=== PATIENT | male | born 1945 | race Caucasian/White ===

== ENCOUNTER 2017-12-02 06:23 | Inpatient (IN) | payer MEDICARE ==
[2017-12-02] MEDS ORDERED: GLUCAGON 1 MG/ML VIAL OTHER PRN (10:30)
[2017-12-02] MEDS ORDERED: NICOTINE 21 MG/24 HR PATCH T-DERMAL PRN (10:30)
[2017-12-02] MEDS ORDERED: ALUMINUM/MAGNESIUM/SIMETH 30 ML CUP PO PRN (10:30)
[2017-12-02] MEDS ORDERED: MAGNESIUM HYDROXIDE SUSP 30 ML CUP PO PRN (10:30)
[2017-12-02] MEDS ORDERED: DEXTROSE 50% IN WATER 50 ML VIAL(D50) IV PUSH PRN (10:30)
[2017-12-02] MEDS ORDERED: ACETAMINOPHEN 325 MG TAB PO PRN (10:30)
[2017-12-02] MEDS ORDERED: BUPR100T4 PO (11:10)
[2017-12-02] MEDS ORDERED: ALBI1INJ2 SQ (11:10)
[2017-12-02] MEDS ORDERED: DIVA500T PO (11:10)
[2017-12-02] MEDS ORDERED: METO100T PO (11:10)
[2017-12-02] MEDS ORDERED: PANT40TA3 PO (11:10)
[2017-12-02] MEDS ORDERED: DIVA500T3 PO (11:10)
[2017-12-02] MEDS ORDERED: ALFU10TA2 PO (11:10)
[2017-12-02] MEDS ORDERED: AMLO2.5T PO (11:10)
[2017-12-02] MEDS ORDERED: FINA5TAB2 PO (11:10)
[2017-12-02] MEDS ORDERED: IPRASOL INH (11:10)
[2017-12-02] MEDS ORDERED: GLIP10TA6 PO (11:10)
[2017-12-02] MEDS ORDERED: SERT25TA83 PO (11:10)
[2017-12-02] MEDS ORDERED: GLUC1000 PO (11:10)
[2017-12-02] MEDS ORDERED: LANTUS2P SQ (11:10)
[2017-12-02] MEDS ORDERED: FERR325T18 PO (11:10)
[2017-12-02] MEDS ORDERED: NOVOINJ3 SQ ×3 (11:10)
[2017-12-02] MEDS ORDERED: ATOR40TA16 PO (11:10)
[2017-12-02] MEDS ORDERED: GABA400C5 PO ×2 (11:10→11:53)
[2017-12-02] MEDS ORDERED: HYDR25TA5 PO (11:10)
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
[2017-12-02] MEDS: INSULIN ASPART SUPPLEMENTAL SCALE SQ SCH ×3 (12:00→20:31)
--- NOTE | 2017-12-02 13:28 | HHI.PYPN ---
Subjective Remarks Patient was seen today for second opinion. The patient reports that the reason he is here is because he tried to commit suicide. Patient states that he has been very depressed since his left him last September 2017. He reports that he has history of suicidal attempt long time ago when he was in [place] [employer]. The patient reports feeling lonely, sad, with increased sense of hopelessness, helplessness, and persistent suicidal ideation with a plan of overdosing or jumping in front of a car. The patient is fully oriented 3, no attention deficit, no fluctuation of consciousness present. He denies the use of alcohol and illegal drugs. Mental Status Examination Appearance: Appropriate Consciousness: Alert Orientation: x4 Motor Activity: Normal gait Speech: Unremarkable Language: Adequate Fund of Knowledge: Adequate Attention and Concentration: Adequate Memory: Unremarkable Mood: Sad Affect: Sad Thought Process & Associations: Intact Thought Content: Appropriate Hallucination Type: None Delusion Type: None Suicidal Ideation: Yes Suicidal Plan: Yes Suicidal Intention: No Homicidal Ideation: No Homicidal Plan: No Homicidal Intention: No Insight: Poor Judgment: Poor Assessment & Plan Problem List: (1) Adjustment disorder with depressed mood ICD Codes: F43.21 - Adjustment disorder with depressed mood Assessment & Plan: I have seen and examined this patient for second opinion, reviewed documentation, discussed the patient with nursing charge, I agree and concur with Dr. Oswald assessment and plan. Assessment & Plan Estimated LOS: days Justification for Cont. Inpt. Patient is currently suicidal Enmanuel Zamarripa MD Dec 02, 2017 13:28
[2017-12-02] MEDS: metFORMIN HCL 500 MG TAB PO SCH ×2 (13:49→17:34)
[2017-12-02] MEDS: GABAPENTIN 400 MG CAP PO SCH ×2 (13:49→20:31)
[2017-12-02] MEDS: buPROPion HCL 100 MG TAB PO SCH ×2 (13:49→20:31)
[2017-12-02] MEDS: amLODIPine BESYLATE 5 MG TAB PO SCH (13:49)
[2017-12-02] MEDS: FINASTERIDE 5 MG TAB PO SCH (13:49)
[2017-12-02] MEDS: TAMSULOSIN HCL 0.4 MG CAP PO SCH (13:49)
[2017-12-02] MEDS: glipiZIDE 10 MG TAB PO SCH ×2 (13:49→16:26)
[2017-12-02] MEDS: FERROUS SULFATE 325 MG (65 MG ELEMENTAL IRON) TAB PO SCH ×3 (13:49→20:31)
[2017-12-02] MEDS: METOPROLOL TARTRATE 100 MG TAB PO SCH ×2 (13:50→20:31)
[2017-12-02] MEDS: PANTOPRAZOLE SOD 40 MG DELAYED RELEASE TAB PO SCH (13:50)
[2017-12-02] MEDS: HYDROCHLOROTHIAZIDE 25 MG TAB PO SCH (13:50)
[2017-12-02] MEDS: INSULIN DETEMIR 100 UNITS/ML VIAL SQ SCH (13:51)
[2017-12-02] MEDS ORDERED: PILL SPLITTER OTHER PRN (15:00)
--- NOTE | 2017-12-02 15:15 | PD.CONS ---
[facility] By Dr. Pinedo Reason for Consult Medical management Primary Care Physician Unknown Diagnoses: (1) Coronary artery disease (2) Diabetes mellitus (3) Hypertension (4) Adjustment disorder with depressed mood History of Present Illness The patient is a 72-year-old male admitted to the medical/psychiatric unit under Shah act for suicide attempt. He states that he feels less depressed today. He has no other complaints at this time. He reports chronic bowel issues, alternating constipation and diarrhea secondary to medications. He also has chronic cough which he states is secondary to radiation pneumonitis. Review of Systems Constitutional: DENIES: Fever, Chills, Night Sweats Eyes: DENIES: Blurred vision, Vision loss Ears, nose, mouth, throat: DENIES: Hearing loss Respiratory: COMPLAINS OF: Cough, DENIES: Wheezing, Sputum production, Shortness of breath Cardiovascular: DENIES: Chest pain, Palpitations, Dyspnea on Exertion, Lower Extremity Edema Gastrointestinal: COMPLAINS OF: Constipation, Diarrhea, DENIES: Abdominal pain , Nausea, Vomiting Genitourinary: DENIES: Urinary frequency, Urinary incontinence, Urgency, Hematuria, Dysuria, Nocturia Musculoskeletal: DENIES: Joint pain, Muscle aches Integumentary: DENIES: Pruritus, Rash Hematologic/lymphatic: DENIES: Bruising Neurologic: DENIES: Headache Past Family Social History Allergies: Coded Allergies: No Known Allergies (Unverified Allergy, Unknown, 12/02/17) Past Medical History Diabetes mellitus Hypertension Coronary artery disease Radiation pneumonitis History of lung cancer Past Surgical History Thoracotomy Appendectomy Reported Medications DuoNeb twice daily Alfuzosin 10 mg daily Ferrous sulfate 325 mg 4 times daily Atorvastatin 40 mg nightly Metoprolol 100 mg twice daily Amlodipine 2.5 mg daily Depakote 1500 mg nightly Gabapentin 400 mg twice daily Wellbutrin 100 mg twice daily Sertraline 25 mg daily HCTZ 25 mg daily Pantoprazole 40 mg daily Metformin 1000 mg twice daily Albiglutide 50mg subQ weekly on Saturday Insulin aspart 10 units with breakfast, 5 units at lunch, and 13 units at dinner. Lantus 45 units daily Glipizide 10 mg twice daily Finasteride 5 mg daily Family History Colon cancer Social History Quit smoking 17 years ago. Denies alcohol or illicit drug use. Physical Exam Physical Exam GENERAL: Obese male in no acute distress. HEENT: Normocephalic, atraumatic. Pupils equal, round and reactive. Extraocular movements intact. No scleral icterus. No injection or drainage. Oropharynx is clear. Mucous membranes are moist. CARDIOVASCULAR: Regular rate and rhythm without murmurs, gallops, or rubs. RESPIRATORY: Clear to auscultation. No wheezes, rales, or rhonchi. Breathing is non-labored. GASTROINTESTINAL: Abdomen soft, non-tender, nondistended. EXTREMITIES: No lower extremity edema. No calf tenderness. PSYCH: Alert and oriented x 3. Assessment and Plan Assessment and Plan 1. Shah act, suicide attempt: Management per psychiatry. 2. Coronary artery disease: Currently asymptomatic. Continue beta-oanh, PAT inhibitor, statin. 3. Hypertension: Continue metoprolol, amlodipine, HCTZ. 4. Diabetes mellitus, insulin-dependent: A1c pending. Continue Levemir daily. Continue prandial insulin per home doses. Continue metformin, glipizide. Monitor Accu-Cheks and cover sliding scale insulin. 5. Sleep apnea: Patient states that he does not use CPAP. 6. DVT prophylaxis: Ambulation. Aung Martel MD Dec 02, 2017 15:15
[2017-12-02] MEDS: INSULIN ASPART 1,000 UNITS/10 ML VIAL SQ SCH (16:00)
[2017-12-02] MEDS: SERTRALINE HCL 50 MG TAB PO SCH (16:26)
[2017-12-02 18:17] VITALS: BP 124/60; PULSE 63; RESP 18; TEMP 97.6; O2SAT 96
[2017-12-02 18:50] LABS: ALBUMIN 3.2 GM/DL (3.4-5.0); AST (GOT) 40 U/L (15-37); BICARBONATE 27.9 MEQ/L (21.0-32.0); BLOOD UREA NITROGEN 13 MG/DL (7-18); CALCIUM 9.2 MG/DL (8.5-10.1); CHLORIDE 103 MEQ/L (98-107); CREATININE 0.88 MG/DL (0.60-1.30); GLOMERULAR FILTRATION RATE 85 ML/MIN (>89); GLUCOSE,RANDOM 73 MG/DL (74-106); SODIUM (NA) 139 MEQ/L (136-145)
[2017-12-02 18:55] LABS: ALKALINE PHOSPHATASE 158 U/L (45-117); ALT (GPT) 38 U/L (12-78); CHOLESTEROL 146 MG/DL (120-200); CHOLESTEROL/ HDL RATIO 3.89 RATIO; HDL CHOLESTEROL 37.5 MG/DL (40.0-60.0); LDL CHOLESTEROL 64 MG/DL (0-99); TOTAL BILIRUBIN ADULT 0.8 MG/DL (0.2-1.0); TOTAL PROTEIN 7.2 GM/DL (6.4-8.2); TRIGLYCERIDES 223 MG/DL (42-150)
[2017-12-02] MEDS: DIVALPROEX SODIUM E.R. 500 MG TAB PO SCH (20:31)
[2017-12-02] MEDS: ATORVASTATIN 40 MG TAB PO SCH (20:31)
[2017-12-02] MEDS: RESP: ALBUTEROL 2.5 MG/IPRATROPIUM 0.5 MG NEB (SCH) INH (21:32)
[2017-12-03 05:13] VITALS: BP 111/60; PULSE 66; RESP 17; TEMP 98; O2SAT 95
[2017-12-03] MEDS: glipiZIDE 10 MG TAB PO SCH (06:54)
[2017-12-03] MEDS: INSULIN ASPART 1,000 UNITS/10 ML VIAL SQ SCH ×3 (07:00→16:00)
[2017-12-03] MEDS: INSULIN ASPART SUPPLEMENTAL SCALE SQ SCH ×4 (07:14→20:29)
[2017-12-03] MEDS: RESP: ALBUTEROL 2.5 MG/IPRATROPIUM 0.5 MG NEB (SCH) INH ×2 (07:23→20:51)
[2017-12-03 07:47] LABS: AUTOMATED NEUTROPHIL # 6.3 TH/MM3 (1.8-7.7); BASOPHIL % 0.5 % (0.0-2.0); EOSINOPHIL # 0.3 TH/MM3 (0-0.4); EOSINOPHIL % 3.2 % (0.0-4.0); HEMATOCRIT 42.3 % (39.0-51.0); HEMOGLOBIN 14.4 GM/DL (13.0-17.0); LYMPHOCYTE # 1.9 TH/MM3 (1.0-4.8); MEAN CELL VOLUME 79.8 FL (80.0-100.0); MEAN CORPUSCULAR HEMOGLOBIN 27.1 PG (27.0-34.0); MEAN CORPUSCULAR HGB CONC 33.9 % (32.0-36.0); MEAN PLATELET VOLUME 6.9 FL (7.0-11.0); MONOCYTE # 0.8 TH/MM3 (0-0.9); NEUT % 67.3 % (16.0-70.0); PLATELET COUNT 163 TH/MM3 (150-450); RED CELL DISTRIBUTION WIDTH 17.6 % (11.6-17.2); WHITE BLOOD COUNT 9.4 TH/MM3 (4.0-11.0)
[2017-12-03 08:41] LABS: ALBUMIN 3.1 GM/DL (3.4-5.0); AST (GOT) 44 U/L (15-37); BICARBONATE 27.6 MEQ/L (21.0-32.0); BLOOD UREA NITROGEN 13 MG/DL (7-18); CALCIUM 9.2 MG/DL (8.5-10.1); CHLORIDE 100 MEQ/L (98-107); CREATININE 0.92 MG/DL (0.60-1.30); GLOMERULAR FILTRATION RATE 81 ML/MIN (>89); GLUCOSE,RANDOM 102 MG/DL (74-106); SODIUM (NA) 138 MEQ/L (136-145)
[2017-12-03 08:42] LABS: ALT (GPT) 40 U/L (12-78); CHOLESTEROL 141 MG/DL (120-200); TRIGLYCERIDES 188 MG/DL (42-150)
[2017-12-03] MEDS: PANTOPRAZOLE SOD 40 MG DELAYED RELEASE TAB PO SCH (08:49)
[2017-12-03] MEDS: SERTRALINE HCL 50 MG TAB PO SCH (08:49)
[2017-12-03] MEDS: TAMSULOSIN HCL 0.4 MG CAP PO SCH (08:49)
[2017-12-03] MEDS: HYDROCHLOROTHIAZIDE 25 MG TAB PO SCH (08:49)
[2017-12-03] MEDS: buPROPion HCL 100 MG TAB PO SCH ×2 (08:49→20:57)
[2017-12-03] MEDS: METOPROLOL TARTRATE 100 MG TAB PO SCH ×2 (08:49→20:58)
[2017-12-03] MEDS: FERROUS SULFATE 325 MG (65 MG ELEMENTAL IRON) TAB PO SCH ×4 (08:49→20:58)
[2017-12-03] MEDS: GABAPENTIN 400 MG CAP PO SCH ×2 (08:49→20:58)
[2017-12-03] MEDS: FINASTERIDE 5 MG TAB PO SCH (08:49)
[2017-12-03] MEDS: metFORMIN HCL 500 MG TAB PO SCH ×2 (08:50→18:00)
[2017-12-03] MEDS: amLODIPine BESYLATE 5 MG TAB PO SCH (08:50)
[2017-12-03] MEDS: INSULIN DETEMIR 100 UNITS/ML VIAL SQ SCH (08:51)
[2017-12-03 08:54] LABS: ALKALINE PHOSPHATASE 173 U/L (45-117); CHOLESTEROL/ HDL RATIO 4.01 RATIO; HDL CHOLESTEROL 35.1 MG/DL (40.0-60.0); LDL CHOLESTEROL 68 MG/DL (0-99); TOTAL BILIRUBIN ADULT 0.8 MG/DL (0.2-1.0); TOTAL PROTEIN 7.4 GM/DL (6.4-8.2)
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
--- NOTE | 2017-12-03 09:04 | HHI.PR ---
Subjective Remarks Follow-up visit diabetes, HTN. Patient seen and examined today sitting in chair. Reports he is doing better. Denies pain and discomfort. Denies SOB/ dyspnea. Denies chest pain, palpitations, headaches, dizziness. Denies fevers, chills, n/v/d. Denies dysuria. Objective Vitals Vital Signs Date Time Temp Pulse Resp B/P (MAP) Pulse Ox O2 Delivery O2 Flow Rate FiO2 12/03/17 05:13 98.0 66 17 111/60 (77) 95 12/02/17 18:17 97.6 63 18 124/60 (81) 96 I/O 12/02/17 12/02/17 12/02/17 12/03/17 12/03/17 12/03/17 07:00 15:00 23:00 07:00 15:00 23:00 Intake Total 240 ml 720 ml 240 ml Balance 240 ml 720 ml 240 ml Intake Oral 240 ml 720 ml 240 ml # Voids 1 2 # Bowel Movements 4 Result Diagram: 12/03/17 0704 12/03/17 0704 Objective Remarks GENERAL: This is a well-nourished, well-developed patient, in no apparent distress. SKIN: Warm and dry. HEENT: Normocephalic. Pupils equal round and reactive. Nose without bleeding. Airway patent. NECK: Trachea midline. CARDIOVASCULAR: Regular rate and rhythm without murmurs, gallops, or rubs. RESPIRATORY: Clear to auscultation. Breath sounds equal bilaterally. No wheezes , rales, or rhonchi. GASTROINTESTINAL: Abdomen soft, non-tender, nondistended. Bowel Sounds normoactive x4. MUSCULOSKELETAL: Extremities without clubbing, cyanosis, or edema. NEUROLOGICAL: Awake and alert. Oriented to place, person. No focal neuro deficit. Moves all extremities. Normal speech. A/P Problem List: (1) Coronary artery disease ICD Code: I25.10 - Atherosclerotic heart disease of [place] coronary artery without angina pectoris (2) Diabetes mellitus ICD Code: E11.9 - Type 2 diabetes mellitus without complications (3) Hypertension ICD Code: I10 - Essential (primary) hypertension (4) Adjustment disorder with depressed mood ICD Code: F43.21 - Adjustment disorder with depressed mood Assessment and Plan 72-year-old male admitted to the medical/psychiatric unit under [facility] act for suicide attempt. He is now admitted to medical inpatient psychiatry unit. Consulted for assistance with medical management. [facility] acted for suicide attempt -Managed by psychiatry team CAD HTN -Continue metoprolol, amlodipine, hydrochlorothiazide, statin medication -Monitor BP trend DM, insulin-dependent -Continue with Levemir, prandial insulin home dose. -Continue metformin. Will hold glipizide for now as patient Accu-Chek has been low. -Monitor Accu-Cheks. Insulin sliding scale coverage as needed. Sleep apnea -Does not use any CPAP DVT prop early ambulation. Katty Moy Dec 03, 2017 09:04
--- NOTE | 2017-12-03 15:58 | EKG ---
Date Performed: 12/02/2017 Time Performed: 15:55:41 PTAGE: 72 years EKG: Sinus rhythm WITH FIRST DEGREE AV BLOCK NONSPECIFIC ST/T CHANGES ABNORMAL ECG NO PREVIOUS TRACING DOCTOR: Theron Maldonado Interpretating Date/Time 12/03/2017 15:56:39
[2017-12-03 16:15] LABS: HEMOGLOBIN A1C 5.9 % (4.3-6.0)
[2017-12-03 17:39] VITALS: BP 104/52; PULSE 65; RESP 16; TEMP 97.8; O2SAT 95
[2017-12-03] MEDS: ATORVASTATIN 40 MG TAB PO SCH (20:58)
[2017-12-03] MEDS: DIVALPROEX SODIUM E.R. 500 MG TAB PO SCH (20:58)
[2017-12-04 06:14] VITALS: BP 122/64; PULSE 67; RESP 17; TEMP 97.8; O2SAT 93
[2017-12-04] MEDS: INSULIN ASPART 1,000 UNITS/10 ML VIAL SQ SCH ×2 (07:00→11:00)
[2017-12-04] MEDS: INSULIN ASPART SUPPLEMENTAL SCALE SQ SCH ×2 (08:00→12:00)
[2017-12-04] MEDS: RESP: ALBUTEROL 2.5 MG/IPRATROPIUM 0.5 MG NEB (SCH) INH (08:00)
[2017-12-04] MEDS: HYDROCHLOROTHIAZIDE 25 MG TAB PO SCH (09:00)
[2017-12-04] MEDS: INSULIN DETEMIR 100 UNITS/ML VIAL SQ SCH (09:00)
[2017-12-04] MEDS: buPROPion HCL 100 MG TAB PO SCH (09:41)
[2017-12-04] MEDS: GABAPENTIN 400 MG CAP PO SCH (09:42)
[2017-12-04] MEDS: PANTOPRAZOLE SOD 40 MG DELAYED RELEASE TAB PO SCH (09:42)
[2017-12-04] MEDS: FINASTERIDE 5 MG TAB PO SCH (09:42)
[2017-12-04] MEDS: FERROUS SULFATE 325 MG (65 MG ELEMENTAL IRON) TAB PO SCH ×2 (09:42→13:00)
[2017-12-04] MEDS: metFORMIN HCL 500 MG TAB PO SCH (09:42)
[2017-12-04] MEDS: METOPROLOL TARTRATE 100 MG TAB PO SCH (09:42)
[2017-12-04] MEDS: TAMSULOSIN HCL 0.4 MG CAP PO SCH (09:42)
[2017-12-04] MEDS: amLODIPine BESYLATE 5 MG TAB PO SCH (09:42)
[2017-12-04] MEDS: SERTRALINE HCL 50 MG TAB PO SCH (09:42)
[2017-12-04] MEDS ORDERED: NOVOINJ3 SQ ×3 (12:29)
[2017-12-04] MEDS ORDERED: METO100T PO (12:29)
[2017-12-04] MEDS ORDERED: BUPR100T4 PO (12:29)
[2017-12-04] MEDS ORDERED: DEPA500T3 PO (12:29)
[2017-12-04] MEDS ORDERED: LANTUS2P SQ (12:29)
[2017-12-04] MEDS ORDERED: GABA400C5 PO (12:29)
[2017-12-04] MEDS ORDERED: GLUC1000 PO (12:29)
[2017-12-04] MEDS ORDERED: PANT40TA3 PO (12:29)
[2017-12-04] MEDS ORDERED: FINA5TAB2 PO (12:29)
[2017-12-04] MEDS ORDERED: HYDR25TA5 PO (12:29)
[2017-12-04] MEDS ORDERED: ATOR40TA16 PO (12:29)
[2017-12-04] MEDS ORDERED: IPRASOL INH (12:29)
[2017-12-04] MEDS ORDERED: FERR325T18 PO (12:29)
[2017-12-04] MEDS ORDERED: AMLO2.5T PO (12:29)
[2017-12-04] MEDS ORDERED: TAMS5CAP PO (12:29)
[2017-12-04] MEDS ORDERED: ZOLO50TA PO (12:29)
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
--- NOTE | 2017-12-04 23:40 | HHI.PR ---
Subjective Remarks Patient seen today around 1 PM. Says he is doing well. Denies any chest shortness breath. Feels like going home. Objective Vital Signs Date Time Temp Pulse Resp B/P (MAP) Pulse Ox O2 Delivery O2 Flow Rate FiO2 12/04/17 06:14 97.8 67 17 122/64 (83) 93 I/O 12/04/17 12/04/17 12/04/17 12/05/17 12/05/17 12/05/17 07:00 15:00 23:00 07:00 15:00 23:00 Intake Total 960 ml Balance 960 ml Intake Oral 960 ml # Voids 1 Result Diagram: 12/03/17 0704 12/03/17 0704 Objective Remarks GENERAL: patient sitting up in chair. Appears comfortable. SKIN: Warm and dry. HEAD: Normocephalic. EYES: No scleral icterus. No injection or drainage. NECK: Supple, trachea midline. No JVD. CARDIOVASCULAR: Regular rate and rhythm without murmurs, gallops, or rubs. RESPIRATORY: Breath sounds equal bilaterally. No accessory muscle use. GASTROINTESTINAL: Abdomen soft, non-tender, nondistended. MUSCULOSKELETAL: No cyanosis, or edema. BACK: Nontender without obvious deformity. No CVA tenderness. A/P Assessment and Plan 72-year-old male admitted to the medical/psychiatric unit under [facility] act for suicide attempt. He is now admitted to medical inpatient psychiatry unit. Consulted for assistance with medical management. [facility] acted for suicide attempt -Managed by psychiatry team CAD HTN -Continue metoprolol, amlodipine, hydrochlorothiazide, statin medication -Monitor BP trend DM, insulin-dependent -Continue with Levemir, prandial insulin home dose. -Continue metformin. Will hold glipizide for now as patient Accu-Chek has been low. -Monitor Accu-Cheks. Insulin sliding scale coverage as needed. = Blood sugars acceptable. Continue home regimen. Sleep apnea -Does not use any CPAP DVT prop early ambulation. Discharge Planning patient discharged home today Siddharth Lopez MD Dec 04, 2017 23:40
== END 2017-12-04 15:00 | disposition home or self-care (01) | DRG 881 ==
LOC: H4EA 09:25
PROVIDERS: ADMIT Student in an Organized Health Care Education/Training Program; ATTEND Student in an Organized Health Care Education/Training Program
DX: F43.21 Adjustment disorder with depressed mood (principal); J70.0 Acute pulmonary manifestations due to radiation; E11.9 Type 2 diabetes mellitus without complications; Z79.4 Long term (current) use of insulin; Z79.84 Long term (current) use of oral hypoglycemic drugs; R05 Cough; Y84.2 Radiological procedure and radiotherapy as the cause of abnormal reaction of the patient, or of later complication, without mention of misadventure at the time of the procedure; Z85.118 Personal history of other malignant neoplasm of bronchus and lung; I10 Essential (primary) hypertension; I25.10 Atherosclerotic heart disease of native coronary artery without angina pectoris; G47.30 Sleep apnea, unspecified; Z87.891 Personal history of nicotine dependence
CPT/HCPCS: 80053; 80061; 80164; 82948; 83036; 84443; 85025; 93005; 94640; 94664; J1815